=== PATIENT | male | born 1995 | race African-American/Black ===

== ENCOUNTER 2018-02-18 00:20 | Emergency (ER) | payer BC ==
[2018-02-18] MEDS ORDERED: Ibuprofen TAB* 600 MG PO ONE (00:44)
--- NOTE | 2018-02-18 02:22 | ED ---
Lower Extremity - HPI Summary HPI Summary: Patient complains of left knee pain after landing awkwardly from a slam dunk while playing basketball. Denies any other pain or injury. Denies loss of sensation or function distally. - History of Current Complaint Chief Complaint: EDExtremityLower Stated Complaint: LEFT KNEE INJURY Time Seen by Provider: 02/18/18 00:35 Hx Obtained From: Patient Mechanism Of Injury: Other Onset of Pain: Immediate Onset/Duration: Hours Severity Initially: Moderate Severity Currently: Moderate Pain Intensity: 4 Pain Scale Used: 0-10 Numeric Timing: Constant Location: Is Discrete @ Character Of Pain: Throbbing Associated Signs And Symptoms: Positive: Swelling - Mild, Knee Pain Aggravating Factor(s): Ambulation, Movement Alleviating Factor(s): Rest, Ice - Allergies/Home Medications Allergies/Adverse Reactions: Allergies Allergy/AdvReac Type Severity Reaction Status Date / Time No Known Allergies Allergy Verified 02/18/18 00:35 Home Medications: Home Medications NK [No Home Medications Reported] 02/18/18 [History Confirmed 02/18/18] PMH/Surg Hx/FS Hx/Imm Hx Endocrine/Hematology History: Denies: Hx Anticoagulant Therapy Cardiovascular History: Denies: Hx Cardiac Arrest History: Denies: Hx Dialysis Neurological History: Denies: Hx CVA Infectious Disease History: No Infectious Disease History: Denies: Traveled Outside the [place] in Last 30 Days - Social History Alcohol Use: Occasionally Hx Substance Use: No Hx Tobacco Use: No Review of Systems Constitutional: Negative Eyes: Negative ENT: Negative Cardiovascular: Negative Respiratory: Negative Gastrointestinal: Negative Genitourinary: Negative Musculoskeletal: Other Skin: Negative Neurological: Negative Psychological: Normal All Other Systems Reviewed And Are Negative: Yes Physical Exam - Summary Physical Exam Summary: Patient able to flex and extend left knee with mild pain. Mild swelling to left knee. No erythema, extra warmth, deformity, tenderness noted to left knee. PMS intact distally. Full range of motion of left ankle and foot without indication of pain. Triage Information Reviewed: Yes Vital Signs On Initial Exam: Initial Vitals Pulse Pulse Ox 62 100 02/18/18 00:33 02/18/18 00:33 Vital Signs Reviewed: Yes Appearance: Positive: Well-Appearing Skin: Positive: Warm Head/Face: Positive: Normal Head/Face Inspection Eyes: Positive: Normal Neck: Positive: Supple Respiratory/Lung Sounds: Positive: Clear to Auscultation Cardiovascular: Positive: Normal Abdomen Description: Positive: Nontender Musculoskeletal: Positive: Normal Neurological: Positive: Normal Psychiatric: Positive: Normal AVPU Assessment: Alert - Marisela Coma Scale Best Eye Response: 4 - Spontaneous Best Motor Response: 6 - Obeys Commands Best Verbal Response: 5 - Oriented Coma Scale Total: 15 Diagnostics - Vital Signs Vital Signs Temp Pulse Resp BP Pulse Ox 02/18/18 00:34 98.6 F 66 16 129/38 100 02/18/18 00:33 62 100 - Laboratory Lab Statement: Any lab studies that have been ordered have been reviewed, and results considered in the medical decision making process. Lower Extremity Course/Dx - Course Course Of Treatment: Patient complains of left knee pain after landing awkwardly from a slam dunk while playing basketball. Denies any other pain or injury. Denies loss of sensation or function distally. Physical exam:Patient able to flex and extend left knee with mild pain. Mild swelling to left knee. No erythema, extra warmth, deformity, tenderness noted to left knee. PMS intact distally. Full range of motion of left ankle and foot without indication of pain. X-ray negative. Patient placed in knee immobilizer and given crutches. Patient from yesterday, pain does not improve in 5 days follow- up with orthopedics. - Diagnoses Provider Diagnoses: Acute knee pain Discharge - Sign-Out/Discharge Documenting (check all that apply): Patient Departure - Discharge Plan Condition: Stable Disposition: HOME Patient Education Materials: Swollen Knee Joint (ED), Knee Pain (ED) Referrals: No Primary Care Phys,NOPCP [Primary Care Provider] - Additional Instructions: Rest, ice, ibuprofen, elevation for pain and swelling. If symptoms do not improve in the next 5 days follow-up with orthopedics when you get home. Return to the ED for any new or worsening symptoms - Billing Disposition and Condition Condition: STABLE Disposition: Home
[2018-02-18 02:49] VITALS: BP 128/60
--- NOTE | 2018-02-18 07:55 | RAD ---
INDICATION: Left knee pain after basketball injury COMPARISON: None TECHNIQUE: 4 view radiograph of the left knee. FINDINGS: The visualized bones are well-corticated and properly aligned. The joint spaces are properly maintained. There is no radiographic evidence of joint effusion. There is no acute fracture, dislocation or other focal bony abnormality. IMPRESSION: Normal knee radiograph as described above. If the patient's symptoms persist, follow-up imaging is recommended. R0
== END 2018-02-18 02:50 | disposition home or self-care (01) ==
LOC: ED 00:20
DX: M25.562 Pain in left knee (principal)
CPT/HCPCS: 99282; A9270-GY

== ENCOUNTER 2018-03-13 07:04 | Day surgery (SDC) | payer BC, OTHER ==
[~2018-03-13 07:04] MED LIST: Buffered Lidocaine 0.9% SYRIN* 5 ML/SYR SYRINGE INTRADERM ONE; Dexamethasone TAB* 4 MG PO ONE; DiMENhydriNATE IV* 50 MG/ML VIAL IV PUSH PRN; Famotidine IV* 10 MG/ML 2 ML (20 mg) IV ONE; Morphine INJ* 2 MG/ML 1 ML SYRINGE (TWO MG - NEW SYRINGE VERSION) IV PRN; Naloxone* 0.4 MG/ML 1 ML VIAL IV PRN; Ondansetron TAB* 4 MG PO ONE; PROCHLORPERAZINE INJ 5 MG/ML 2 ML VIAL IV PRN; Scopolamine 1.5 mg* PATCH TRANSDERM PRN; fentaNYL* 50 MCG/ML 2 ML VIAL (100 MCG VIAL) IV PRN; oxyCODONE/Acetamin 5/325 MG* TAB PO PRN
[2018-03-13] MEDS ORDERED: Famotidine IV* 10 MG/ML 2 ML (20 mg) ONE (07:39)
[2018-03-13] MEDS ORDERED: ceFAZolin 2 GM in NS PREMIX(*) 2 GM/100 ML BAG IVPB ONE (07:40)
[2018-03-13] MEDS ORDERED: Dexamethasone TAB* 4 MG ONE (07:40)
[2018-03-13] MEDS ORDERED: Buffered Lidocaine 0.9% SYRIN* 5 ML/SYR SYRINGE ONE (07:40)
[2018-03-13] MEDS ORDERED: Ondansetron ODT TAB* 4 MG ONE (07:40)
[2018-03-13] MEDS ORDERED: EPINEPHRINE 1 MG/ML 1 ML VIAL ONE (07:57)
[2018-03-13] MEDS ORDERED: Bupivacaine 0.25% EPI 200,000* 30 ML SDV ONE (07:57)
[2018-03-13] MEDS ORDERED: Midazolam* 1 MG/ML 5 ML VIAL (5 MG) ONE (08:00)
[2018-03-13] MEDS ORDERED: fentaNYL* 50 MCG/ML 2 ML VIAL (100 MCG VIAL) ONE (08:00)
[2018-03-13] MEDS ORDERED: KETAMINE HCL* 50 MG/ML 10 ML VIAL ONE (08:00)
[2018-03-13] MEDS ORDERED: Propofol* 10 MG/ML 20 ML BTL IV PUSH ONE (09:22)
[2018-03-13] MEDS ORDERED: Glycopyrrolate IV* 0.2 MG/ML 1 ML VIAL ONE (09:22)
[2018-03-13] MEDS ORDERED: Lidocaine 2% PF * 5 ML VIAL ONE (09:22)
[2018-03-13] MEDS ORDERED: Bupivacaine 0.5% SDV PF* 30ML VIAL ONE (09:22)
[2018-03-13] MEDS ORDERED: Ketorolac INJ* 30 MG/ML 1 ML VIAL ONE (09:22)
[2018-03-13] MEDS ORDERED: Morphine VIAL* 10 MG/ML 1 ML VIAL ONE (10:37)
[2018-03-13] MEDS ORDERED: Mineral Oil Sterile, TOPICAL* 25 ML BTL ONE (11:19)
[2018-03-13] MEDS ORDERED: oxyCODONE/Acetamin 5/325 MG* TAB ONE (15:09)
[2018-03-13 16:45] VITALS: BP 151/87
--- NOTE | 2018-03-14 21:50 | OP ---
OPERATIVE REPORT: DATE OF OPERATION: 03/13/18 DATE OF : 89 SURGEON: Eric Amos MD RECREATION MANAGER: URIAH Gomez A physician greenhouse assistant was required for the length of the procedure for assistance with positioning, i nstrumentation, closure, and knee manipulation. ANESTHESIOLOGIST: Dr. Alexy Chin. ANESTHESIA: General anesthesia, regional femoral nerve block anesthesia, local anesthesia with appro ximately 25 cc of 0.25% Marcaine with epinephrine. PRE-OP DIAGNOSES: 1. Left knee anterior cruciate ligament tear. 2. 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 POST-OP DIAGNOSES: 1. Left knee anterior cruciate ligament tear. 2. Left knee lateral meniscus tear. 3. 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 OPERATIVE PROCEDURES: 1. Left knee arthroscopic ACL reconstruction with oytq-udtblmu-nbvd autograft. 2. Left knee arthroscopic partial lateral meniscectomy. 3. Left knee removal of loose body, bony fragment, patella, os patella from prior Gunnison-Schlatter s yndrome. 4. I added a modifier 22 for this case because of the complexity of the procedure. The patient had a n abnormally long patellar tendon at a length of almost 70 mm and this required double fixation about the tibia as well as removal of a bony fragment from the patellar tendon. ANTIBIOTICS: Ancef 2 g IV. IV FLUIDS: 2 L crystalloid. TOURNIQUET TIME: 120 minutes at 300 mmHg. CNCS-HN-DVCW TIME: 209 minutes. RADIATION EXPOSURE: Mini C-arm was utilized with a very limited number of seconds, unavailable at th is time. SPECIMEN: Bony fragment from patellar tendon, os patella. IMPLANTS: Deena screws, biocomposite, an 8 mm x 23 mm in the femur, 9 mm x 23 mm in the tibia. Sy nthes 4.5 mm partially threaded screw with washer. FiberWire #5 and #2 suture. Cancellous allograft bone chips, 1 packet of 5 cc. COMPLICATIONS: None. ESTIMATED BLOOD LOSS: Minimal. INDICATIONS FOR PROCEDURE: The patient is a 22-year-old man, a senior at [employer], a business m ajor, originally from [facility], who injured himself on 02/17/18 while playing basketball, but wh o saw me for the first time in clinic several days preoperatively. The patient had been working with his athletic trainers on strengthening and to regain range of motio n before his clinic visit with me and as a result he had full range of motion in clinic. He already had had x-rays and an MRI. X-rays and MRI showed a large bony fragment in the distal end of the oliveros llar tendon, consistent with the prior diagnosis of Kelli-Schlatter with the tibial tubercle not hav ing fully consolidated. The patient was not aware of an injury. The patient stated that he had inju red his knee in middle school and had limped for 2 years and had been out of sports for [address] was able to resume sports. There was no diagnosis or treatment provided. 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 The patient is considering a fifth basketball year at [employer] next year if he redshirts this year. I had measured the patient's patellar tendon to be exceptionally long, and almost 70 mm rather than 4 0 to 50 mm, which is more standard. Due to the abnormal increased length of the patellar tendon and this bony fragment that might comprom ise the integrity of the tendon, I spoke to the patient and his girlfriend in clinic about 2 differen t possible graft choices, either a bone- patella-bone autograft or a hamstring autograft. I told the m that the bone-patella- bone graft has a higher look, better outcomes but that we might be forced to use hamstring if the qlth-bfxnetz-tzto graft was not adequate. I told the patient that I plan to re move that bony fragment. The patient was happy with whatever I decided and I actually consented the patient for both jnzm-zafbpwl-drxn or hamstring autograft. We discussed recovery time postoperatively as well as risks and potential complications of surgery. DESCRIPTION OF PROCEDURE: In preoperative holding, the patient signed a written consent. Operative extremity was marked in preoperative holding. The patient underwent a femoral nerve block performed by Dr. Chin. The patient was brought back to the operating room and placed supine on operating room table. The le ft lower extremity was prepped and draped after a tourniquet was placed about the left proximal thigh . A lateral post had been placed about the table prior to prep and drape. Surgical time-out was performed. Initial diagnostic arthroscopy was performed. An anterolateral knee arthroscopy portal was establish ed using standard technique. The patient had no patellofemoral compartment injury. The patient had no medial compartment injury. A quick look in the intercondylar notch showed much ligamentum mucosum obscuring first view of the ACL. I next moved to the lateral compartment. The lateral compartment showed a clear tear of the inner surface of the body of the lateral meniscus. It also showed some ap parent tear to the posterior body adjacent to the root. I established an anteromedial knee arthroscopy portal under direct visualization. I debrided the liga mentum mucosum and synovitis about the anterior knee for improved visualization. I next moved to the lateral compartment. The tear along the superior surface of the posterior body w as very short, might have been just 5 mm in length or less. It did not go through to the inferior flood rface. It was just a tear of the superior surface, partial thickness. It was entirely stable. This is often seen with ACL tears. I therefore decided that this did not require a debridement or repair . I next looked to the tear in the body of the meniscus. This was obliquely oriented, more radial than longitudinal. It just seemed to involve the inner third of the meniscus. It was not repairable and I decided therefore to debride it. I debrided the meniscus back to a stable rim using arthroscopic shaver and an arthroscopic biters. The patient still had a generous rim of intact lateral meniscus t issue. I next moved to the intercondylar notch. I visualized the fully torn ACL ligament. All instruments and fluid were removed from the knee. The [facility] Knee Positioner was applied. Esmarch was applied and the tourniquet was elevated to 300 mmHg. A harvest of pupv-ryznrxi-dahb autograft was next performed. A longitudinal anterior midline incisio n was made in the skin from just proximal to the distal pole of the patella to the distal end of the tibial tubercle. I changed knives and excised down to the paratenon. I incised the paratenon and re flected it off the patella tendon. I noted the patellar tendon to be exceptionally wide, 40 mm. I was able to palpate the bony fragment that was on the undersurface of the distal end of the patellar tendon. The bony fragment seemed mid line but seemed slightly more medial than lateral. Therefore, I made the decision for my ligament vallejo rvest not to be purely midline but to be biased slightly laterally to involve more ligament not assoc iated with that bony fragment. I harvested my graft, first cutting with a double blade, 10 mm , the ligament itself. I nex t harvested a 25 mm bone block proximally. I removed that bone block and peeled the graft out from p roximal to its distal. This allowed me to see the undersurface of the graft and to fully appreciate that bony fragment. I sharply dissected around the bony fragments. Using a 15-blade, I continued to sharply dissect around that bony fragment until I removed it. I next put my graft back into place proximally in the patella and I even secured it to the adjacent i ntact patella tendon to avoid a loose graft. I next used a microsagittal saw to remove a 30-mm dista l bone block. I removed my graft from the knee. It appeared very ahuja. There was an indent on the undersurface w here the bony fragment had been present, but the patellar tendon was not significantly thin there. O verall, the tendon tissue seemed very robust and I was very happy with it. We closed the defect in the patellar tendon with multiple buried rzuflx-je-lpvwh stitches using Ethib ond 0 suture. The tourniquet was dropped. On the back table, the autograft was prepared. The bony blocks were contoured so that they could jus t get through a 9.5 mm tunnel. Again, ligament quality appeared excellent. A slightly tubularized t he distal most aspect of the patellar tendon with 1 zwuedg-la-ugjbn stitch using Vicryl 2.0 suture. I placed a passing suture in the proximal and distal bone blocks. In the proximal bone block, I dril led a hole with a 2.5 mm drill bit and then placed 1 FiberWire #5 suture. In the distal bone block, I placed 2 drill holes, 2.5 mm in size. As an accommodation to the extra long length of this graft, I placed a long whipstitch, with nonlocki ng stitches using a FiberWire #2 suture into a proximally half of the patellar tendon. I then millie t that FiberWire #2 suture out of my more proximal of the 2 drill holes. I then placed a FiberWire # 5 stitch, placed only 2 whipstitches distally and took that out through the distal most of the 2 dril l holes. This was done in case my bone block would be entirely out of the tibial tunnel after fixati on. I measured my patellar tendon graft length itself to be approximately 67 mm long. The patellar bone b lock proximally was 25 mm and the tibial tubercle bone block distally was 30 mm. I kept my graft under tension and moist. I returned to the knee. Esmarch was applied and tourniquet was re-elevated. I established an anterolateral knee arthroscopy portal, new. I debrided some ACL tendon through my f irst anteromedial knee arthroscopy portal. I then established a new, accessory anteromedial portal a nd performed a notchplasty through that portal. I next found the 1:45 o'clock position with a [place] pick with the knee in 90 degrees of flexion. T his corresponded with the superior most extent of articular cartilage posteriorly. I used a 7 mm alisson und the back guide and placed my Beath pin with the knee hyperflexed. I next drilled a 10 mm tunnel, at least 30 mm in length, with an acOzmosis reamer. I shaved up the detritus from that tunnel. I next returned the knee to 90 degrees of flexion. Using a tibial drill guide, I placed my pin with the pin guide set at 55 degrees. I tried to make the go lazaro slightly more vertical, but it was essentially as it is normally placed. I then reamed that pin with a 10 mm bit. I liked my tunnel positions. I placed a passing stitch through each tunnel and I used that to pass my graft. I countersunk my graft in the femur proximally 4 to 5 mm, but the bone block was still nicely visuali zed. I placed a punch and then tapped and then placed a Deena 8 x 23 mm biocomposite screw. I cou ntersunk that screw, so that it was to the level of the bone block. I then fully extended the knee. There was a 14 mm of the bone block proud, I calculated with a ruler . That meant that 16 mm of the bone block was in the tibial tunnel. I punched the bone, placed a Nitinol wire, tapped and then placed a 9 x 23 [address] screw[address] I place d it so it was flush with the bone. I got excellent purchase of both of these bones and the femur an d the tibia. Because only 16 mm of the bone block was within the tunnel, I wanted to get some additional fixation. It should be stated that I placed a Deena bone screw with a nice posterior drawer maneuver being ap plied. To supplement my tibial side of fixation, I placed a 4.5 mm partially threaded screw with washer, bic ortically, with my FiberWire #2 and FiberWire #5 stitches tied around it. All wounds irrigated. The tourniquet had been dropped. I took bony pieces from my graft as well as some cancellous bone chips and I placed these into the defects of the patella and the tibial tubercle . I closed my paratenon layer completely from proximal to distal with a nice running stitch using Vicry l 0 suture. This closed very well. Closure of the subcutaneous tissue with buried simple stitches u sing Vicryl 2-0 suture. It should be stated, I also placed some additional deep stitches about the tibial tunnel exit site, p laced with Vicryl 2-0 suture that brought some soft tissue over that tunnel exit site prior to the pa ratenon being closed. I also rongeured, some of that proud bone block, to nicely smooth it out so th at there would be no sharp objects and no very prominent bone plug. I closed the long longitudinal incision with a running stitch using nylon 3-0 suture. Closed 2 small arthroscopy skin incisions with kpunbh-pu-sjacv stitches using nylon 3-0 suture. Some local anesthe noah was applied, proximally 25 cc in the subcutaneous tissue about the skin incisions with 0.25% Durga christopher with epinephrine. Xeroform, 4x4s, ABDs, sterile Webril, Viet bandage from foot to proximal thigh. A cooling unit was applied and a knee brace was locked in full extension. DISPOSITION: The patient was discharged home when medically stable. The patient will receive Percoc et as needed for pain control and aspirin for DVT prophylaxis as well as a short course of Keflex for wound infection prophylaxis. The patient will start physical therapy immediately. Wound care instr uctions were provided. Toe- touch weightbearing with crutches and knee brace. The patient will foll ow up with me 10 to 14 days postoperatively for a wound check and has my number to call with question s. [id number]/[facility] #: [id number]
[2018-03-16] MEDS ORDERED: Scopolamine PATCH Remove* 1 NOTE MISC PATCH OFF ONE (06:26)
--- NOTE | 2018-03-16 07:52 | RAD ---
INDICATION: ACL reconstruction , left knee injury COMPARISONS: February 18, 2018 TECHNIQUE: Fluoroscopy was provided for a surgical procedure. Total fluoroscopy time is: 6 seconds FINDINGS: A single spot images submitted of the lateral proximal foreleg IMPRESSION: FLUOROSCOPY WAS PROVIDED FOR A SURGICAL PROCEDURE CPT II Codes: G9500
== END 2018-03-13 16:51 | disposition home or self-care (01) ==
LOC: OR 07:04
PROVIDERS: ATTEND Orthopaedic Surgery
DX: S83.512A Sprain of anterior cruciate ligament of left knee, initial encounter (principal); S83.282A Other tear of lateral meniscus, current injury, left knee, initial encounter; M92.52 Juvenile osteochondrosis of tibia tubercle; X50.0XXA Overexertion from strenuous movement or load, initial encounter; Y93.67 Activity, basketball; Y92.310 Basketball court as the place of occurrence of the external cause; G89.18 Other acute postprocedural pain
CPT/HCPCS: 76000; 88304; 88311; A9270-GY; C1713; C1776; J0690; J1885; J2250; J2270; J2704; J3010; J8540